=== PATIENT | female | born 2000 | race Caucasian/White ===

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

== ENCOUNTER 2021-02-11 14:42 | Emergency (ER) | payer OTHER ==
[~2021-02-11] VITALS: Ht 160 cm; Wt 93.9 kg
[2021-02-11 15:28] LABS: BASO % 0.4 % (0.0-1.0); EOS # 0.1 10*3/uL (0.0-0.4); EOS % 1.2 % (1.0-4.0); HEMATOCRIT 36.3 % (37.0-47.0); LYMPH # 1.7 10*3/uL (1.3-4.4); LYMPH % 22.1 % (27.0-41.0); MEAN CELL VOLUME 82.3 fl (81.0-99.0); MEAN CORPUSCULAR HGB 28.6 pg (27.0-31.0); MEAN CORPUSCULAR HGB CONC 34.7 g/dl (33.0-37.0); MEAN PLATELET VOLUME 9.9 fl (9.6-12.3); MONO # 0.6 10*3/uL (0.1-1.0); MONO % 8.5 % (3.0-9.0); NEUT # 5.1 10*3/uL (2.3-7.9); NEUT % 67.5 % (47.0-73.0); PLATELET COUNT AUTOMATED 323 10*3/uL (130-400); RED BLOOD COUNT 4.41 10*6/uL (4.10-5.10); RED CELL DISTRI WIDTH 12.5 % (0-14.5); WHITE BLOOD COUNT 7.6 10*3/uL (4.8-10.8)
[2021-02-11 15:57] LABS: ALBUMIN 3.5 gm/dl (3.1-4.5); ALKALINE PHOSPHATASE 90 U/L (45-117); BUN 10 mg/dl (7-24); CHLORIDE 106 mmol/L (98-107); CREATININE 0.61 mg/dL (0.55-1.02); LIPASE 66 U/L (73-393); SGOT/AST 10 IU/L (3-35); SGPT/ALT 15 U/L (12-78); SODIUM 137 mmol/L (136-145); TOTAL PROTEIN 7.4 gm/dL (6.4-8.2)
[2021-02-11 15:58] LABS: B-hCG (QUALITATIVE) NEGATIVE (NEGATIVE)
[2021-02-11 16:02] LABS: TROPONIN I < 0.015 ng/ml (<0.045)
== END 2021-02-11 19:16 | disposition home or self-care (01) ==
LOC: ED 14:42
PROVIDERS: Physician Assistant
DX: S80.812A Abrasion, left lower leg, initial encounter (principal); R51.9 Headache, unspecified; M25.512 Pain in left shoulder; Z23 Encounter for immunization; Z79.899 Other long term (current) drug therapy; Z79.2 Long term (current) use of antibiotics; Z96.22 Myringotomy tube(s) status; V86.59XA Driver of other special all-terrain or other off-road motor vehicle injured in nontraffic accident, initial encounter; Y93.I9 Activity, other involving external motion; Y92.488 Other paved roadways as the place of occurrence of the external cause; Y99.8 Other external cause status

== ENCOUNTER 2021-04-25 19:48 | Emergency (ER) | payer OTHER ==
[~2021-04-25] VITALS: Ht 160 cm; Wt 89.8 kg
[2021-04-25] MEDS ORDERED: AUGMENTIN 875875 MG PO (22:16)
[2021-04-25] MEDS ORDERED: SEPTDS PO (22:16)
== END 2021-04-25 22:19 | disposition home or self-care (01) ==
LOC: ED 19:48
DX: J01.90 Acute sinusitis, unspecified (principal); L03.213 Periorbital cellulitis; Z79.899 Other long term (current) drug therapy

== ENCOUNTER 2021-11-28 22:19 | Emergency (ER) | payer OTHER ==
[~2021-11-28] VITALS: Ht 160 cm; Wt 97.5 kg
[~2021-11-28 22:19] MED LIST changes: +AUGMENTIN 875875 MG PO; +SEPTDS PO
[2021-11-28] MEDS ORDERED: AUGMENTIN 875-875 MG PO (22:55)
== END 2021-11-29 01:23 | disposition home or self-care (01) ==
LOC: ED 22:19
DX: S61.032A Puncture wound without foreign body of left thumb without damage to nail, initial encounter (principal); Z23 Encounter for immunization; Z79.899 Other long term (current) drug therapy; Z98.51 Tubal ligation status; W54.0XXA Bitten by dog, initial encounter; Y93.89 Activity, other specified; Y92.89 Other specified places as the place of occurrence of the external cause; Y99.8 Other external cause status

== ENCOUNTER 2022-07-11 07:38 | Emergency (ER) | payer OTHER ==
[~2022-07-11] VITALS: Ht 160 cm; Wt 95.3 kg
[~2022-07-11 07:38] MED LIST changes: +AUGMENTIN 875-875 MG PO
[2022-07-11 08:00] LABS: BASO % 0.5 % (0.0-1.0); EOS # 0.1 10*3/uL (0.0-0.4); EOS % 2.1 % (1.0-4.0); HEMATOCRIT 37.5 % (37.0-47.0); LYMPH # 2.3 10*3/uL (1.3-4.4); LYMPH % 37.3 % (27.0-41.0); MEAN CELL VOLUME 82.6 fl (81.0-99.0); MEAN CORPUSCULAR HGB 27.8 pg (27.0-31.0); MEAN CORPUSCULAR HGB CONC 33.6 g/dl (33.0-37.0); MEAN PLATELET VOLUME 8.9 fl (9.6-12.3); MONO # 0.5 10*3/uL (0.1-1.0); MONO % 8.2 % (3.0-9.0); NEUT # 3.2 10*3/uL (2.3-7.9); NEUT % 51.7 % (47.0-73.0); PLATELET COUNT AUTOMATED 340 10*3/uL (130-400); RED BLOOD COUNT 4.54 10*6/uL (4.10-5.10); RED CELL DISTRI WIDTH 12.3 % (0-14.5); WHITE BLOOD COUNT 6.1 10*3/uL (4.8-10.8)
[2022-07-11 08:22] LABS: ALKALINE PHOSPHATASE 99 U/L (45-117); BUN 18 mg/dl (7-24); CHLORIDE 107 mmol/L (98-107); CREATININE 0.64 mg/dL (0.55-1.02); LIPASE 74 U/L (73-393); POTASSIUM 3.6 mmol/L (3.5-5.1); SGOT/AST 7 IU/L (3-35); SGPT/ALT 20 U/L (12-78); SODIUM 141 mmol/L (136-145); TOTAL PROTEIN 7.3 gm/dL (6.4-8.2)
[2022-07-11 08:22] LABS: BILIRUBIN Negative (Negative); BLOOD Negative (Negative); CLARITY Clear (Clear); COLOR Yellow (Yellow); GLUCOSE Negative (Negative); KETONE Negative (Negative); LEUKO ESTERASE 1+ (Negative); NITRITE Negative (Negative); SPECIFIC GRAVITY >= 1.030 (1.001-1.030)
[2022-07-11 08:35] LABS: BACTERIA 1+
[2022-07-11 08:36] LABS: MUCOUS 1+
== END 2022-07-11 08:51 | disposition home or self-care (01) ==
LOC: ED 07:38
PROVIDERS: Emergency Medicine
DX: R10.13 Epigastric pain (principal); R11.0 Nausea; Z79.899 Other long term (current) drug therapy

== ENCOUNTER 2022-07-18 15:22 | Emergency (ER) | payer OTHER | END 2022-07-18 17:22 | disposition left against medical advice (07) | LOC: ED 15:22 | DX: S00.521A Blister (nonthermal) of lip, initial encounter (principal); Z53.21 Procedure and treatment not carried out due to patient leaving prior to being seen by health care provider ==

== ENCOUNTER → 2022-11-26 | Outpatient (CLI) | payer OTHER | END | disposition home or self-care (01) | LOC: CT 00:34 | PROVIDERS: ATTEND Specialist | DX: J34.2 Deviated nasal septum (principal) ==

== ENCOUNTER → 2023-01-13 | Day surgery (SDC) | payer OTHER ==
[2023-01-08 14:35] LABS: ACT PARTIAL THROMBO TIME 26.4 SECONDS (20.0-32.1); INTERNATIONAL NORM RATIO 0.9 (2.0-3.5)
[~2023-01-13] VITALS: Ht 160 cm; Wt 99.8 kg
[~2023-01-13] MED LIST changes: +CEFDINIR300 MG PO; +OCUFLOX 0.3% 5 M5 ML OPH
[2023-01-13 08:00] VITALS: BP 125/85
[2023-01-13 10:00] VITALS: BP 94/41
[2023-01-13 10:15] VITALS: BP 102/65
[2023-01-13 10:30] VITALS: BP 118/86
[2023-01-13 10:44] VITALS: BP 104/56
[2023-01-13 11:01] VITALS: BP 117/73
== END | disposition home or self-care (01) ==
LOC: SDC 01-08 11:00
PROVIDERS: ATTEND Specialist
DX: H65.493 Other chronic nonsuppurative otitis media, bilateral (principal); J35.02 Chronic adenoiditis; Z79.01 Long term (current) use of anticoagulants

== ENCOUNTER → 2023-09-02 | Day surgery (SDC) | payer OTHER ==
[~2023-09-02] VITALS: Ht 160 cm; Wt 99.8 kg
[~2023-09-02] MED LIST changes: +CLARINEX5 MG PO
[2023-09-02 08:09] VITALS: BP 123/70
[2023-09-02 09:07] VITALS: BP 129/64
[2023-09-02 09:22] VITALS: BP 107/65
[2023-09-02 09:37] VITALS: BP 118/70
[2023-09-02 09:52] VITALS: BP 114/72
[2023-09-02 10:07] VITALS: BP 112/66
== END | disposition home or self-care (01) ==
LOC: SDC 08-31 11:00
PROVIDERS: ATTEND Specialist
DX: H69.93 Unspecified Eustachian tube disorder, bilateral (principal); J30.9 Allergic rhinitis, unspecified; Z96.22 Myringotomy tube(s) status; F17.200 Nicotine dependence, unspecified, uncomplicated; Z98.890 Other specified postprocedural states